=== PATIENT | male | born 1950 | race Caucasian/White ===

== ENCOUNTER → 2019-07-30 | Outpatient (CLI) | payer OTHER ==
[~2019-07-30] MED LIST: ACETAMINOPHN-T1 EACH PO; ALEVE220 M1 PO; ALEVE220 MG PO; ALLOPURINOL 30300 M2 PO; ANTIVERT25 MG PO; ASPIRIN325 PO; ASPIRIN81 M2 PO; ATORVASTATIN CA40 MG PO; BENTYL 10 MG CA10 M1 PO; CARVEDILOL3.125 MG PO; COQ-10100 MG PO; CRESTOR20 MG PO; CYCLOBENZAPRINE10 MG PO; FISH OIL 1,001000 MG PO; FLEXERIL PO; HYDROCHLOROTH12.5 M1 PO; HYDROCHLOROTH12.5 MG PO; HYDROCODON-ACE1 EAC8 PO; KLOR-CON 1010 MEQ PO; LAMISIL250 MG PO; LECITHIN PO; LEVOTHROID150 MC1 PO; LEVOXYL150 MCG PO; LINZESS145 MCG PO; LIPITOR80 MG PO; LISINOPRIL-HCT1 EAC2 PO; LISINOPRIL20 MG PO; METOPROLOL SUCC50 MG PO; MOBIC7.5 MG PO; MOTION RELIEF25 MG PO; MULTAQ400 MG PO; MULTIVITAMINS1 EAC7 PO; OMEPRAZOLE 20 M20 MG PO; PERCOCET 5-3251 EACH PO; PRADAXA150 MG PO; PROBIOTIC1 EAC1 PO; PROSTATE HEALT1 EAC1 PO; PROSTATE SR SO1 EACH PO; RAPAFLO8 MG PO; TERBINAFINE HC250 MG PO; VITAMIN D1000 UNI1 PO; VITAMIN D3400 UNIT PO
== END ==
LOC: SJCVCIMAG 12:42
PROVIDERS: ATTEND Internal Medicine Cardiovascular Disease
DX: I25.810 Atherosclerosis of coronary artery bypass graft(s) without angina pectoris (principal); Z95.1 Presence of aortocoronary bypass graft